=== PATIENT | male | born 1945 | race African-American/Black ===

== ENCOUNTER 2018-05-21 05:38 | Inpatient (IN) ==
[2018-05-10 13:52] LABS: Basophils # 0.1 10*3/uL (0.0-0.2); Basophils % 0.9 % (0.0-0.8); Eosinophils # 0.2 10*3/uL (0.0-0.87); Eosinophils % 2.4 % (0.00-10.9); Hematocrit 38.3 VOL% (42.0-52.0); Hemoglobin 12.3 GM/DL (14.0-18.0); Immature Granulocytes % 0.3 %; Immature Granulocytes Absolute 0.02 #; Lymphocytes # 1.8 10*3/uL (1.4-4.0); Lymphocytes % 27.7 % (21.2-54.2); Mean Corpuscular HGB Conc 32.1 GM/DL (32-36); Mean Corpuscular Hemoglobin 32 PG (27-34); Mean Corpuscular Volume 100.5 FL (87-102); Mean Platelet Volume 10.3 FL (9.6-12.0); Monocytes # 0.5 10*3/uL (0.11-0.8); Monocytes % 7.2 % (1.7-12.7); Neutrophils % 61.5 % (38.7-73.9); Platelet Count 181 T/CUMM (130-400); Red Blood Count 3.81 MC/CUMM (3.8-5.5); Red Cell Distribution Width 13.7 % (9.3-17.3); White Blood Count 6.6 T/CUMM (4-12)
[2018-05-10 14:28] LABS: Alanine Aminotransferase 17 U/L (16-61); Albumin 3.4 G/DL (3.4-5.0); Alkaline Phosphatase 86 U/L (45-117); Aspartate Amino Transferase 16 U/L (0-37); Bilirubin,Total < 0.39 MG/DL (0.2-1.0); Blood Urea Nitrogen 19 MG/DL (7-18); Calcium 8.7 MG/DL (8.5-10.1); Glucose 148 MG/DL (74-106); Osmolality,Calculated 287.1 MOS/KG (273-304); Potassium 4.4 MMOL/L (3.5-5.1); Sodium 142 MMOL/L (136-145); Total Protein 7.6 G/DL (6.4-8.3)
[2018-05-21] MEDS ORDERED: ceFAZolin 1,000 MG VIAL ONE (05:47)
[2018-05-21] MEDS ORDERED: ceFAZolin 1,000 MG in SYRINGE 1 EACH IV ONE (06:00)
[2018-05-21] MEDS ORDERED: TISSUE ADHESIVE 1 EACH APPLICATOR TOP ONE (06:21)
[2018-05-21] MEDS ORDERED: LIDOCAINE 2% TOP JELLY 20 ML VIAL INTRAURETH ONE (06:21)
[2018-05-21] MEDS ORDERED: HEPARIN 5,000 UNIT/1 ML VIAL ONE (06:21)
[2018-05-21] MEDS ORDERED: THROMBIN TOPICAL (RECOMBINANT) 5,000 UNIT VIAL TOP ONE (06:22)
[2018-05-21] MEDS ORDERED: LIDOCAINE 1% 20 ML VIAL ONE (06:22)
[2018-05-21] MEDS ORDERED: VANCOMYCIN 500 MG VIAL ONE (06:22)
[2018-05-21] MEDS ORDERED: amLODIPine 5 MG TABLET PO STA (06:24)
[2018-05-21] MEDS ORDERED: amLODIPine 5 MG TABLET ONE (06:30)
[2018-05-21] MEDS: LACTATED RINGERS 1,000 ML IV SCH ×2 (06:35→10:38)
[2018-05-21] MEDS ORDERED: HEPARIN/NACL 0.9% 2 UNITS/ML 3,000 ML IV ONE (07:15)
[2018-05-21] MEDS ORDERED: ONDANSETRON 4 MG/2 ML VIAL IV PRN ×2 (10:15→10:49)
[2018-05-21] MEDS ORDERED: HYDROmorphone 2 MG/1 ML VIAL IV PRN (10:15)
[2018-05-21] MEDS ORDERED: PROMETHAZINE 25 MG/1 ML VIAL ONE (10:47)
[2018-05-21] MEDS ORDERED: ONDANSETRON 4 MG/2 ML VIAL ONE (10:47)
[2018-05-21] MEDS ORDERED: HYDROmorphone 2 MG/1 ML VIAL ONE (10:47)
[2018-05-21] MEDS ORDERED: MEPERIDINE 25 MG/1 ML VIAL ONE (10:47)
[2018-05-21] MEDS ORDERED: diphenhydrAMINE 50 MG/1 ML VIAL IV PRN (10:49)
[2018-05-21] MEDS ORDERED: PROMETHAZINE INJ 25 MG in SODIUM CHLORIDE 0.9% 50 ML IV PRN (10:49)
[2018-05-21] MEDS ORDERED: MEPERIDINE 25 MG/1 ML VIAL IV PRN (10:49)
[2018-05-21] MEDS: HYDROmorphone 2 MG/1 ML VIAL IV PRN ×4 (10:50→11:20)
[2018-05-21] MEDS ORDERED: PROPOFOL 200 MG/20 ML VIAL IV ONE (10:55)
[2018-05-21] MEDS ORDERED: HEPARIN/NACL 0.9% 2 UNITS/ML 500 ML IV ONE (10:55)
[2018-05-21] MEDS ORDERED: fentaNYL 100 MCG/2 ML VIAL ONE (10:56)
[2018-05-21] MEDS ORDERED: SEVOFLURANE 1 UNIT/15 MINUTE INH ONE (10:56)
[2018-05-21] MEDS ORDERED: MIDAZOLAM 2 MG/2 ML VIAL ONE (10:56)
[2018-05-21] MEDS ORDERED: PHENYLEPHRINE 10 MG/1 ML VIAL IV ONE (10:56)
[2018-05-21] MEDS ORDERED: HEPARIN 10,000 UNIT/10 ML VIAL ONE (10:56)
[2018-05-21] MEDS ORDERED: GLYCOPYRROLATE 0.4 MG/2 ML VIAL ONE (10:57)
[2018-05-21] MEDS ORDERED: PROTAMINE SULFATE 50 MG/5 ML VIAL IV ONE (10:57)
[2018-05-21] MEDS ORDERED: SODIUM CHLORIDE 0.9% 1,000 ML IV ONE (10:57)
[2018-05-21] MEDS ORDERED: ROCURONIUM 100 MG/10 ML VIAL IV ONE (10:57)
[2018-05-21] MEDS ORDERED: NEOSTIGMINE 10 MG/10 ML VIAL ONE ×2 (10:57)
[2018-05-21 12:28] LABS: Hematocrit 34.7 VOL% (42.0-52.0); Hemoglobin 11.2 GM/DL (14.0-18.0)
[2018-05-22 04:49] LABS: Hematocrit 32.8 VOL% (42.0-52.0); Hemoglobin 10.5 GM/DL (14.0-18.0)
[2018-05-22 05:10] LABS: Calcium 7.8 MG/DL (8.5-10.1); Osmolality,Calculated 278.4 MOS/KG (273-304); Potassium 4.3 MMOL/L (3.5-5.1)
[2018-05-22] MEDS ORDERED: amLODIPine 10 MG TABLET PO SCH (09:00)
[2018-05-22] MEDS ORDERED: LISINOPRIL/HCTZ 20-12.5 MG TABLET PO SCH (09:00)
[2018-05-22] MEDS ORDERED: SIMVASTATIN 20 MG TABLET PO SCH (09:00)
[2018-05-22] MEDS: LACTATED RINGERS 1,000 ML IV SCH ×3 (09:18→09:19)
[2018-05-22 12:27] VITALS: BP 130/74
== END 2018-05-22 13:44 | disposition home or self-care (01) | DRG 269 ==
LOC: N.SDSINP 05:38 → N.4E 12:21
PROVIDERS: ADMIT Surgery; ATTEND Surgery
PROC: IRERAAA (2018-05-21 08:05)